=== PATIENT | male | born 1965 | race Caucasian/White ===

== ENCOUNTER 2022-07-13 16:38 | Emergency (ER) | payer MEDICAID ==
[~2022-07-13] VITALS: Ht 193 cm; Wt 132.4 kg
[2022-07-13 17:14] LABS: BASO # 0.1 10*3/uL (0.0-0.1); BASO % 0.8 % (0.0-1.0); EOS # 0.2 10*3/uL (0.0-0.4); EOS % 2.8 % (1.0-4.0); HEMATOCRIT 46.4 % (42.0-52.0); LYMPH # 2.1 10*3/uL (1.3-4.4); LYMPH % 27.6 % (27.0-41.0); MEAN CELL VOLUME 89.7 fl (80.0-94.0); MEAN CORPUSCULAR HGB CONC 33.4 g/dl (33.0-37.0); MEAN PLATELET VOLUME 9.6 fl (9.6-12.3); MONO # 0.7 10*3/uL (0.1-1.0); NEUT # 4.5 10*3/uL (2.3-7.9); NEUT % 59.5 % (47.0-73.0); PLATELET COUNT AUTOMATED 272 10*3/uL (130-400); RED BLOOD COUNT 5.17 10*6/uL (4.50-5.90); RED CELL DISTRI WIDTH 12.6 % (0-14.5); WHITE BLOOD COUNT 7.6 10*3/uL (4.8-10.8)
[2022-07-13 17:43] LABS: ACT PARTIAL THROMBO TIME 28.6 SECONDS (20.0-32.1); INTERNATIONAL NORM RATIO 0.9 (2.0-3.5)
[2022-07-13 17:53] LABS: ALKALINE PHOSPHATASE 97 U/L (46-116); BUN 12 mg/dl (9-23); CHLORIDE 100 mmol/L (98-107); CREATININE 0.91 mg/dL (0.70-1.30); LIPASE 34 U/L (12-53); SGPT/ALT 30 U/L (10-49); SODIUM 137 mmol/L (136-145); TOTAL PROTEIN 7.1 gm/dL (6.0-8.0)
== END 2022-07-13 18:28 | disposition home or self-care (01) ==
LOC: ED 16:38
PROVIDERS: Family Medicine
DX: R07.9 Chest pain, unspecified (principal); G89.29 Other chronic pain; R20.2 Paresthesia of skin; Z88.0 Allergy status to penicillin

== ENCOUNTER → 2022-07-31 | Outpatient (CLI) | payer MEDICAID | END | disposition home or self-care (01) | LOC: RAD 12:13 | PROVIDERS: ATTEND Nurse Practitioner Family | DX: M51.36 Other intervertebral disc degeneration, lumbar region (principal); M47.817 Spondylosis without myelopathy or radiculopathy, lumbosacral region; M47.814 Spondylosis without myelopathy or radiculopathy, thoracic region; M25.78 Osteophyte, vertebrae; I70.0 Atherosclerosis of aorta; M48.061 Spinal stenosis, lumbar region without neurogenic claudication ==

== ENCOUNTER → 2022-08-16 | Outpatient (CLI) | payer MEDICAID ==
[~2022-08-16] MED LIST: CELEXA20 MG PO; DIOVAN160 M2 PO; ROSUVASTATIN CA20 MG PO; TRILEPTAL300 MG PO
== END | disposition home or self-care (01) ==
LOC: CARD 00:51
PROVIDERS: ATTEND Internal Medicine Cardiovascular Disease
DX: R07.89 Other chest pain (principal)

== ENCOUNTER → 2022-08-29 | Outpatient (CLI) | payer MEDICAID | END | disposition home or self-care (01) | LOC: CARD 01:13 | PROVIDERS: ATTEND Internal Medicine Cardiovascular Disease | DX: I11.9 Hypertensive heart disease without heart failure (principal); E78.5 Hyperlipidemia, unspecified; I35.8 Other nonrheumatic aortic valve disorders ==

== ENCOUNTER → 2023-06-14 | Outpatient (CLI) | payer MEDICAID ==
[2023-06-14 13:20] LABS: BASO % 0.6 % (0.0-1.0); EOS # 0.1 10*3/uL (0.0-0.4); EOS % 2.8 % (1.0-4.0); HEMATOCRIT 41.9 % (42.0-52.0); LYMPH # 1.9 10*3/uL (1.3-4.4); LYMPH % 37.4 % (27.0-41.0); MEAN CELL VOLUME 87.8 fl (80.0-94.0); MEAN CORPUSCULAR HGB 30.4 pg (27.0-31.0); MEAN CORPUSCULAR HGB CONC 34.6 g/dl (33.0-37.0); MEAN PLATELET VOLUME 9.1 fl (9.6-12.3); MONO # 0.5 10*3/uL (0.1-1.0); MONO % 8.9 % (3.0-9.0); NEUT # 2.5 10*3/uL (2.3-7.9); NEUT % 50.3 % (47.0-73.0); PLATELET COUNT AUTOMATED 240 10*3/uL (130-400); RED BLOOD COUNT 4.77 10*6/uL (4.50-5.90); RED CELL DISTRI WIDTH 12.7 % (0-14.5)
[2023-06-14 13:58] LABS: ALKALINE PHOSPHATASE 88 U/L (46-116); BUN 8 mg/dl (9-23); CHLORIDE 106 mmol/L (98-107); POTASSIUM 3.9 mmol/L (3.4-5.1); SGPT/ALT 22 U/L (5-49)
== END | disposition home or self-care (01) ==
LOC: US 06-13 13:30 → LAB 12:18 → US 12:30
PROVIDERS: ATTEND Urology
DX: N44.2 Benign cyst of testis (principal); D40.0 Neoplasm of uncertain behavior of prostate; R53.83 Other fatigue; I86.1 Scrotal varices; N28.89 Other specified disorders of kidney and ureter; E23.0 Hypopituitarism